=== PATIENT | female | born 1985 | race African-American/Black ===

== ENCOUNTER 2021-01-06 19:03 | Emergency (ER) | payer MEDICARE, OTHER ==
[~2021-01-06] VITALS: Ht 188 cm; Wt 121.1 kg
[2021-01-06] MEDS ORDERED: VALS160T2 PO (19:37)
[2021-01-06] MEDS ORDERED: METO-356 PO (19:37)
[2021-01-06] MEDS ORDERED: ROSU10TA2 PO (19:37)
[2021-01-06] MEDS ORDERED: AMLO10TA59 PO (19:37)
--- NOTE | 2021-01-06 19:50 | NUR ---
Pt provided urine sample, sent to lab.
--- NOTE | 2021-01-06 20:05 | NUR ---
PT IS IN ROOM #2B. DR CONNORS EVALUATED THE PT.
[2021-01-06] MEDS ORDERED: CLON0.1T PO (20:12)
--- NOTE | 2021-01-06 20:25 | NUR ---
PT WAS D/C'd TO HOME. D/C INSTRUCTIONS GIVEN TO THE PT.
[2021-01-06 20:26] VITALS: BP 150/89
== END 2021-01-06 20:26 | disposition home or self-care (01) ==
LOC: ER 19:05
DX: I10 Essential (primary) hypertension (principal); E66.9 Obesity, unspecified; Z68.34 Body mass index [BMI] 34.0-34.9, adult; H54.61 Unqualified visual loss, right eye, normal vision left eye; E11.9 Type 2 diabetes mellitus without complications; F41.9 Anxiety disorder, unspecified
CPT/HCPCS: A4663